=== PATIENT | female | born 1960 | race Caucasian/White ===

== ENCOUNTER 2017-07-13 07:49 | Emergency (ER) | payer OTHER ==
[~2017-07-13] VITALS: Ht 152.4 cm; Wt 90.7 kg
[~2017-07-13 07:49] MED LIST: ALEVE220 M1 PO; ALLEGRA ALLERGY60 MG PO; CELEXA20 MG PO; OSTERA TABLET1 EAC1 PO; PERCOCET 5-3251 EACH PO; TYLENOL325 MG PO; UNICOMPLEX M TA1 TA1 PO; VITAMIN E400 UNIT PO; XANAX 0.25 MG0.25 MG PO
[2017-07-13] MEDS ORDERED: AFRIN30 ML NASAL (08:10)
[2017-07-13] MEDS ORDERED: ZYRTEC10 M5 PO (08:10)
[2017-07-13] MEDS ORDERED: EMERGEN-C 1,01000 MG PO (08:11)
[2017-07-13] MEDS ORDERED: NORCO 5-325 TA1 EACH PO (08:38)
[2017-07-13 09:00] VITALS: BP 151/73
== END 2017-07-13 09:00 | disposition home or self-care (01) ==
LOC: M.ERS 07:49
DX: S80.02XA Contusion of left knee, initial encounter (principal); F41.9 Anxiety disorder, unspecified; Z88.1 Allergy status to other antibiotic agents; W01.0XXA Fall on same level from slipping, tripping and stumbling without subsequent striking against object, initial encounter; Y93.89 Activity, other specified; Y92.89 Other specified places as the place of occurrence of the external cause; Y99.8 Other external cause status